=== PATIENT | male | born 1950 | race Caucasian/White ===

== ENCOUNTER → 2017-06-15 11:22 | Outpatient (CLI) | payer MEDICARE, OTHER, SELFPAY ==
--- NOTE | 2017-06-15 11:28 | RAD_ITS ---
STUDY: X-RAY - LEFT KNEE REASON FOR EXAM: Male, 67 years old. Left-sided knee pain without known injury. TECHNIQUE: 4 view(s) of the knee. COMPARISON: None. FINDINGS: There is demineralization of the visualized distal femur. There is demineralization of the tibia and fibula. There is a sclerotic lesion within the proximal medial tibia that may represent a bone island. There is arthrosis of the proximal tibiofibular articulation. There is no demonstrated fracture. There is moderate degenerative arthrosis of the medial femorotibial compartment with moderate joint space narrowing. There is mild degenerative arthrosis of the lateral femorotibial compartment. There is moderate degenerative arthrosis of the patellofemoral articulation. There is a soft tissue prominence in the suprapatellar region suggesting a small volume joint effusion. The soft tissue structures are unremarkable. RAD/Knee 4 or More Views IMPRESSION: Moderately severe degenerative arthropathy of the left knee. Electronically Signed: Nalini Faith MD at 8:24 EDT , Service support ,
== END ==
PROVIDERS: Family Provider Nurse Practitioner; PCP Nurse Practitioner; Visit Provider Nurse Practitioner
DX: M25.562 Pain in left knee (principal)
CPT/HCPCS: 73564

== ENCOUNTER 2017-12-25 07:28 | Observation (INO) | payer MEDICARE, OTHER, SELFPAY ==
[2017-12-05 09:58] VITALS: BP 156/80; PULSE 69; RESP 18; TEMP 36.9; O2SAT 96; BMI 38.7
[2017-12-05 10:38] LABS: Basophil# 0.11 X10^3/uL; Basophil% 1.4 % (0-1); Eosinophil# 0.14 X10^3/uL; Eosinophils% 1.8 % (0-5); Lymphocyte % 37.9 % (19-41); Mean Corp Hgb Conc 34.9 g/gl (32-36); Mean Corpuscular Hgb 29.4 pg (27.0-32.0); Mean Corpuscular Volume 84.3 fL (80-94); Mean Platelet Vol. 12.2 fl (6.2-12.0); Monocyte# 0.63 X10^3/uL; Neutrophil # 4.02 X10^3/uL (2.7-7.7); Neutrophil % 50.6 % (47-70); Platelet Count 177 K/mm3 (150-450); RBC Distribution Width CV 13.9 % (11.6-14.6); RBC Distribution Width SD 42.6 fl (35.1-43.9); White Blood Count 7.9 K/mm3 (4.4-11.0)
[2017-12-05 10:42] LABS: POSITIVE COUNT NO; POSITIVE DIFFERENTIAL NO; POSITIVE MORPHOLOGY NO
[2017-12-05 11:06] LABS: Anion Gap 12 (5-15); BUN 17 mg/dL (7-18); BUN/Creat Ratio 21.1 RATIO (10-20); Calcium,Total 8.8 mg/dL (8.5-10.1); Chloride 105 mmol/L (98-107); EST Glomerular Filtration Rate 102 mL/min (>60); Est Glom Filt Rate - Afr Amer 123 mL/min (>60); Estimated Creatinine Clearance 110.01 ml/min; Glucose 110 mg/dL (74-106); Potassium 3.8 mmol/L (3.5-5.1); Sodium Level 140 mmol/L (136-145)
--- NOTE | 2017-12-21 10:37 | CASEMGMT ---
Call placed to patient to discus discharge planning after upcoming surgery. Per PAT, plan is to return home, patient confirms that he thinks plan is to return home after surgery. Patient concerned that he's unable to install grab bars around toilet, his bed is pretty high off the ground which poses an issue getting in/out of bed. Patient reports that he's 6'6 and his bed comes up to his hip. Patient does have at home to assist with needs. Outpatient physical therapy is set up at [facility] and will assist with transportation. Patient reports steps are not an issue at home, has a high-rise toilet. Patient does not have a walker, states he prefers crutches as they are easier to get sized properly to accommodate height but feels as though a walker would encourage weight bearing on left leg. Patient also states that with a previous knee replacement he was unable to use recliner chair at home due to limited flexibility in LE. Notified patient that RN-CM would be made aware of concerns/needs and that RN-CM will likely follow up with patient after surgery. Barbi Montana LPN Clinical Support
[2017-12-25] VITALS (9 sets, daily range): BP systolic 117–165; BP diastolic 58–87; PULSE 71–84; RESP 16–18; TEMP 36.3–37.3; O2SAT 94–98; BMI 38.7
--- NOTE | 2017-12-25 | KNEE_PTH ---
PATIENT: MARK PETIT LOC: MS3 U#:[id number] AGE/SX: 67/M ROOM: [facility] [place] RE12/25/[address]: Dr. Eliecer Ford DO : 1950 BED: 1 DIS: 12/26/2017 SPEC #: [id number] RECD: 12/25/17 11:49 STATUS: RHONDA REMilad #: [id number] RAUL: 12/25/17 00:[address]: Eliecer Ford DEPT: SURGICAL PATHOLOGY RECD BY: Kevin Andrade ENTERED: 12/25/17 11:49 SP TYPE: TOTAL KNEE OTHR DR: Cherri Kahn, GOLF COURSE ASSISTANT-C Tissues: Knee, NOS Procedures: Decalcification bone/plaque Surgery Specimen Level IV HEADER OPERATION: Left total knee replacement PRE-OP DIAGNOSIS: Osteoarthritis left knee TISSUE SUBMITTED: Bone and soft tissue MICROSCOPIC DIAGNOSIS Bone and soft tissue, left knee, total knee replacement: Pieces of bone with degenerative osteoarthritic changes. Fibroadipose tissue, fibroconnective tissue and reactive synovial tissue. SJ:nelson 12/28/17 MICROSCOPIC DESCRIPTION Slides are reviewed. GROSS DESCRIPTION Received is one container designated bone and soft tissue left knee. The specimen consists of multiple fragments of kennedy-yellow bone measuring in aggregate 14 x 12 x 1.5 cm. Also in the specimen container are multiple fragments of yellow-white soft tissue measuring in aggregate 9 x 7 x 2 cm. A number of bony fragments contain articular surfaces consistent with tibial plateau and femoral condyle and displaying prominent osteophyte formation, eburnation, and bone erosion. Cutting Tool Sharpener sections are submitted in two cassettes as follows: 1 - soft tissue, 2 - bone after decalcification. / AM:nelson 12/25/17 TC:5 [facility]: [id number], [id number]
[2017-12-25] MEDS: oxyCODONE HCl Cr 10 MG Tablet PO (06:37)
[2017-12-25] MEDS: Celecoxib 200 MG Capsule 400 MG PO (06:37)
[2017-12-25] MEDS: Acetaminophen 500 MG Tablet 1000 MG PO ×3 (06:38→21:30)
[2017-12-25] MEDS: Lactated Ringers 1,000 ML 999 ML IV (06:50)
[2017-12-25] MEDS: Scopolamine 1mg/72hr Patch 1 PATCH TD (07:30)
--- NOTE | 2017-12-25 08:49 | PCM.IMDPSTOP ---
Immediate Post-Op Note Date of Procedure: 12/25/17 Primary Surgeon/Physician: Eliecer Fodr electric mule operator: Bernardino Iglesias Pre-Operative Diagnosis: OA left knee Post-Operative Diagnosis: same Surgery/Procedure Performed:: Left TKR Description of Surgical Findings:: see op note Estimated Blood Loss: 50cc Specimen's removed: bone Type of Anesthesia:: Spinal/Supplemental ASA Class: ASA2 Mod Systematic Disease - Admit VTE Documentation VTE Present on Admission: No VTE Mechan Device Prophylaxis: SCD's, Thigh High CHERYL Hose VTE Pharm Prophylaxis ordered?: Yes
--- NOTE | 2017-12-25 09:11 | OP.PN_ITS ---
Immediate Post-Op Note Date of Procedure: 12/25/17 Primary Surgeon/Physician: Eliecer Ford roll machine operator: Bernardino Iglesias Pre-Operative Diagnosis: OA left knee Post-Operative Diagnosis: same Surgery/Procedure Performed:: Left TKR Description of Surgical Findings:: see op note Estimated Blood Loss: 50cc Specimen's removed: bone Type of Anesthesia:: Spinal/Supplemental ASA Class: ASA2 Mod Systematic Disease - Admit VTE Documentation VTE Present on Admission: No VTE Mechan Device Prophylaxis: SCD's, Thigh High CHERYL Hose VTE Pharm Prophylaxis ordered?: Yes
--- NOTE | 2017-12-25 09:23 | PCM.OP.BLANK ---
Operative Report Date of Procedure: 12/25/17 Primary Surgeon/Physician: Eliecer Ford powerhouse electrician apprentice: Terrance Iglesias PA-C powerhouse electrician apprentice: Pre-Operative Diagnosis: OA Left knee Post-Operative Diagnosis: same Surgery/Procedure Performed: Left total knee arthroplasty Estimated Blood Loss: 25cc Specimen's Removed: bone Type of Anesthesia: spinal ASA Class: 2 Implants: [Estela Triathlon size 6 cemented CR femur, size 6 universal base plate, 9 mm CS tibial insert, 38 mm cemented patella ] Indications: Patient has severe end-stage osteoarthritis diagnosed via x-rays in the knee. They have failed all forms of conservative measures including activity modification, injections, anti-inflammatories, use of assistive device. The patient has pain that affects on a daily basis and prevents him from doing things that they enjoyed. They have elected to undergo the above procedure. The risks of the procedure were discussed at length and their questions were answered. Procedure Description: The patient was greeted in the preoperative area. The [left ] knee was then marked with a surgical marker. Patient was then taken to or Suite 1. They were administered a dose of antibiotics as well as tranexamic acid. Once adequate anesthesia was obtained and airway was secured to placed in supine position on the operating room table. A well-padded tourniquet was placed on the affected extremity. Leg was then prepped and draped in the usual sterile fashion from the knee down. Ioban was used on the skin. Surgical timeout was then performed and confirmed with all present. Six-inch Esmarch was used to examine the limb and tourniquet was then inflated to 250 mmHg. A longitudinal incision was then planned and carried out in the anterior aspect of the knee. The dissection was then carried the length of the incision the extensor mechanism was identified. Standard medial parapatellar arthrotomy was then performed revealing severe eburnation of bone and periarticular osteophytes. There is complete loss of cartilage especially in the medial compartment with varus alignment. Anterior fat pad was removed for visualization purposes and the anterior medial aspect of the tibia was skeletonized for exposure to the knee. The knee was then flexed the patella was inverted. Opening reamer was then used in the femur approximately 1 cm anterior to the attachment of the PCL. The intramedullary valgus wand was then placed in the femur set at 5? of valgus. The distal femoral cutting jig was then applied to the femur with anticipated resection of approximately 8 mm. This was then made with a oscillating saw. The sizing guide was then placed referencing off the posterior condyles and also reference off the epicondylar axis. This was measured and the appropriate size 4-in-1 cutting jig was then applied to the distal femur. Anterior posterior cuts were made followed by the anterior and posterior chamfer cuts. These bony pieces and fragments were removed and placed on the back table. Posterior retractor was then utilized and the tibia was subluxed anteriorly. Intramedullary tibial alignment jig was then applied to the tibia referencing off the medial one third of the tibial tubercle the anterior tibial spine the middle aspect of the tibiotalar joint. Also reference off patient's [place] slope. The tibial cutting jig was then pinned with anticipated resection of 2 mm off of the deficient medial tibial condyle. This cut was made with the oscillating saw. Once this was complete a laminar utility agent was utilized in both medial lateral meniscus were removed and a posterior capsular osteophytes were also removed. Posterior capsule release was performed in the posterior capsule as well as the geniculate arteries are treated with the aqua Navin. The tibia was incised and the appropriate sized tibial tray was then pinned. The femoral trial was then placed and the knee was trialed. Full flexion-extension were easily achieved. The knee seemed to balance quite nicely. Any remaining osteophytes were removed at this time. Once this was complete the patella was everted and the Nirmala patella reaming device was then utilized the patella was then placed in the appropriate jig and reamer was then used to remove approximately 9 mm of the undersurface of the patella. A soft tissue remaining was in the way was removed and patella trial was then placed listed maintain excellent tracking using the no thumbs technique. The tibial tray at this point was punched to accommodate the fins of the final implant. At this point cement was mixed on the back table. The trial components were removed and the knee was copiously irrigated. Did use a cocktail of injection for postoperative pain control. The final components were then cemented in the standard fashion and excess cement was removed with cement removal tools and patellar clamp is placed in the patella. As the cement had cured in full extension tourniquet was deflated and hemostasis was perfect with Bovie cautery as well as the aqua Manus. The knee is once again trialed with different size polyethylenes to ensure the full range of motion was achieved as well as excellent balancing ligamentously was achieved. At this point the knee was copiously irrigated. Final implant was then inserted locking mechanism was engaged and confirmed to be locked. The arthrotomy was then closed with #1 Vicryl aggravate type fashion interrupted. Subcutaneous tissue was closed with 0 Vicryl and surgical garima were placed in the skin. A occlusive silver impregnated dressing was then applied followed by well-padded sterile dressing secured with an Oz wrap. The patient was taken to the PACU in stable condition. No complications known at this time. Postoperatively we will maintain standard total knee postoperative protocol. The use of the physician civil engineering assistant was integral during this procedure. They assisted with positioning placement of the tourniquet retracting closure and placement of the dressing. The procedure would have been much more difficult without their expertise and assistance
--- NOTE | 2017-12-25 09:29 | OP.PCM_ITS ---
Operative Report Date of Procedure: 12/25/17 Primary Surgeon/Physician: Eliecer Ford meat service team member: Terrance Iglesias PA-C meat service team member: Pre-Operative Diagnosis: OA Left knee Post-Operative Diagnosis: same Surgery/Procedure Performed: Left total knee arthroplasty Estimated Blood Loss: 25cc Specimen's Removed: bone Type of Anesthesia: spinal ASA Class: 2 Implants: [Estela Triathlon size 6 cemented CR femur, size 6 universal base plate, 9 mm CS tibial insert, 38 mm cemented patella ] Indications: Patient has severe end-stage osteoarthritis diagnosed via x-rays in the knee. They have failed all forms of conservative measures including activity modification, injections, anti-inflammatories, use of assistive device. The patient has pain that affects on a daily basis and prevents him from doing things that they enjoyed. They have elected to undergo the above procedure. The risks of the procedure were discussed at length and their questions were answered. Procedure Description: The patient was greeted in the preoperative area. The [ left ] knee was then marked with a surgical marker. Patient was then taken to or Suite 1. They were administered a dose of antibiotics as well as tranexamic acid. Once adequate anesthesia was obtained and airway was secured to placed in supine position on the operating room table. A well-padded tourniquet was placed on the affected extremity. Leg was then prepped and draped in the usual sterile fashion from the knee down. Ioban was used on the skin. Surgical timeout was then performed and confirmed with all present. Six-inch Esmarch was used to examine the limb and tourniquet was then inflated to 250 mmHg. A longitudinal incision was then planned and carried out in the anterior aspect of the knee. The dissection was then carried the length of the incision the extensor mechanism was identified. Standard medial parapatellar arthrotomy was then performed revealing severe eburnation of bone and periarticular osteophytes. There is complete loss of cartilage especially in the medial compartment with varus alignment. Anterior fat pad was removed for visualization purposes and the anterior medial aspect of the tibia was skeletonized for exposure to the knee. The knee was then flexed the patella was inverted. Opening reamer was then used in the femur approximately 1 cm anterior to the attachment of the PCL. The intramedullary valgus wand was then placed in the femur set at 5? of valgus. The distal femoral cutting jig was then applied to the femur with anticipated resection of approximately 8 mm. This was then made with a oscillating saw. The sizing guide was then placed referencing off the posterior condyles and also reference off the epicondylar axis. This was measured and the appropriate size 4-in-1 cutting jig was then applied to the distal femur. Anterior posterior cuts were made followed by the anterior and posterior chamfer cuts. These bony pieces and fragments were removed and placed on the back table. Posterior retractor was then utilized and the tibia was subluxed anteriorly. Intramedullary tibial alignment jig was then applied to the tibia referencing off the medial one third of the tibial tubercle the anterior tibial spine the middle aspect of the tibiotalar joint. Also reference off patient's [place] slope. The tibial cutting jig was then pinned with anticipated resection of 2 mm off of the deficient medial tibial condyle. This cut was made with the oscillating saw. Once this was complete a laminar spreader operator automatic was utilized in both medial lateral meniscus were removed and a posterior capsular osteophytes were also removed. Posterior capsule release was performed in the posterior capsule as well as the geniculate arteries are treated with the aqua Navin. The tibia was incised and the appropriate sized tibial tray was then pinned. The femoral trial was then placed and the knee was trialed. Full flexion-extension were easily achieved. The knee seemed to balance quite nicely. Any remaining osteophytes were removed at this time. Once this was complete the patella was everted and the Nirmala patella reaming device was then utilized the patella was then placed in the appropriate jig and reamer was then used to remove approximately 9 mm of the undersurface of the patella. A soft tissue remaining was in the way was removed and patella trial was then placed listed maintain excellent tracking using the no thumbs technique. The tibial tray at this point was punched to accommodate the fins of the final implant. At this point cement was mixed on the back table. The trial components were removed and the knee was copiously irrigated. Did use a cocktail of injection for postoperative pain control. The final components were then cemented in the standard fashion and excess cement was removed with cement removal tools and patellar clamp is placed in the patella. As the cement had cured in full extension tourniquet was deflated and hemostasis was perfect with Bovie cautery as well as the aqua Manus. The knee is once again trialed with different size polyethylenes to ensure the full range of motion was achieved as well as excellent balancing ligamentously was achieved. At this point the knee was copiously irrigated. Final implant was then inserted locking mechanism was engaged and confirmed to be locked. The arthrotomy was then closed with #1 Vicryl aggravate type fashion interrupted. Subcutaneous tissue was closed with 0 Vicryl and surgical garima were placed in the skin. A occlusive silver impregnated dressing was then applied followed by well-padded sterile dressing secured with an Oz wrap. The patient was taken to the PACU in stable condition. No complications known at this time. Postoperatively we will maintain standard total knee postoperative protocol. The use of the physician title assistant was integral during this procedure. They assisted with positioning placement of the tourniquet retracting closure and placement of the dressing. The procedure would have been much more difficult without their expertise and assistance
[2017-12-25 09:40] LABS: Hematocrit 40.2 % (40-54); Hemoglobin 13.8 g/dl (13.0-16.5); Mean Corp Hgb Conc 34.3 g/gl (32-36); Mean Corpuscular Hgb 29.2 pg (27.0-32.0); Mean Corpuscular Volume 85.2 fL (80-94); Mean Platelet Vol. 11.7 fl (6.2-12.0); Platelet Count 188 K/mm3 (150-450); RBC Distribution Width SD 43.2 fl (35.1-43.9); Red Blood Count 4.72 M/mm3 (4.6-6.2); White Blood Count 9.1 K/mm3 (4.4-11.0)
[2017-12-25 09:41] LABS: Scan Indicated on CBC? Y/N NO
[2017-12-25 09:54] LABS: Anion Gap 7 (5-15); BUN 18 mg/dL (7-18); BUN/Creat Ratio 22.5 RATIO (10-20); Calcium,Total 8.3 mg/dL (8.5-10.1); Chloride 107 mmol/L (98-107); EST Glomerular Filtration Rate 102 mL/min (>60); Est Glom Filt Rate - Afr Amer 124 mL/min (>60); Estimated Creatinine Clearance 110.01 ml/min; Glucose 133 mg/dL (74-106); Potassium 3.8 mmol/L (3.5-5.1); Sodium Level 139 mmol/L (136-145)
[2017-12-25] MEDS: Ketorolac 15 MG/ML Vial IV ×2 (10:55→18:05)
[2017-12-25] MEDS: traMADol 50 MG Tablet PO (12:39)
[2017-12-25] MEDS: Senna/Docusate Sodium 1 Tablet 2 TABLET PO ×2 (12:41→21:30)
[2017-12-25] MEDS: Aspirin 325 MG Tablet PO ×2 (12:41→21:30)
[2017-12-25] MEDS: Lactated Ringers 1,000 ML 125 ML IV (14:43)
[2017-12-26] MEDS: traMADol 50 MG Tablet PO ×2 (01:23→09:50)
[2017-12-26 01:42] VITALS: BP 161/80; PULSE 71; RESP 16; TEMP 37.3; O2SAT 96
[2017-12-26] MEDS: Acetaminophen 500 MG Tablet 1000 MG PO ×2 (06:27→13:31)
[2017-12-26 06:37] LABS: Hematocrit 38.1 % (40-54); Mean Corp Hgb Conc 34.1 g/gl (32-36); Mean Corpuscular Hgb 29.3 pg (27.0-32.0); Mean Platelet Vol. 12.2 fl (6.2-12.0); Platelet Count 145 K/mm3 (150-450); RBC Distribution Width SD 43.1 fl (35.1-43.9); Red Blood Count 4.43 M/mm3 (4.6-6.2); White Blood Count 8.9 K/mm3 (4.4-11.0)
[2017-12-26 06:41] LABS: Scan Indicated on CBC? Y/N NO
[2017-12-26 06:44] LABS: Anion Gap 9 (5-15); BUN 17 mg/dL (7-18); BUN/Creat Ratio 21.2 RATIO (10-20); Calcium,Total 8.3 mg/dL (8.5-10.1); Chloride 106 mmol/L (98-107); EST Glomerular Filtration Rate 102 mL/min (>60); Est Glom Filt Rate - Afr Amer 123 mL/min (>60); Estimated Creatinine Clearance 110.01 ml/min; Glucose 128 mg/dL (74-106); Potassium 4.1 mmol/L (3.5-5.1); Sodium Level 140 mmol/L (136-145)
--- NOTE | 2017-12-26 07:45 | PN.ORTHO_ITS ---
Subjective: Patient sitting at bedside. Patient states pain is well-managed. Denies chest pain, shortness breath, calf pain, nausea vomiting. Patient has no other complaints states he is ready for discharge home. He prefers not to have any strong narcotic pain medication he feels his pain is being well managed with use of Tylenol. Objective: Dressings clean dry intact. Negative signs and symptoms of DVT. Vital signs labs all within normal limits. Patient is afebrile neurovascular is otherwise intact. - Physical Exam General: Alert, Oriented x3, Cooperative HEENT: PERRLA Oral: Moist Mucosa Neurological: Cranial nerves II-XII grossly intact Psych/Mental Status: Normal Affect, Alert and oriented to time, place, person, mood and affect Vital Signs Temp Pulse Resp BP Pulse Ox 99.1 F 71 16 161/80 H 96 12/26/17 01:42 12/26/17 01:42 12/26/17 01:42 12/26/17 01:42 12/26/17 01:42 Oxygen Delivery Method Room Air Weight: 144.1 kg Body Mass Index (BMI) 38.7 Intake and Output for Last 24 Hours 12/24/17 12/25/17 12/26/17 23:59 23:59 23:59 Intake Total 3090 / 3090 1567 / 1567 Balance 3090 / 3090 1567 / 1567 Laboratory Tests Past 24 Hrs 12/25/17 12/25/17 12/26/17 09:34 09:34 05:38 WBC 9.1 8.9 RBC 4.72 4.43 L Hgb 13.8 13.0 Hct 40.2 38.1 L MCV 85.2 86.0 MCH 29.2 29.3 MCHC 34.3 34.1 RDW 14.0 14.0 RDW Differential 43.2 43.1 Plt Count 188 145 L MPV 11.7 12.2 H Sodium 139 Potassium 3.8 Chloride 107 Carbon Dioxide 25.0 Anion Gap 7 BUN 18 Creatinine 0.80 Estim Creat Clear Calc 110.01 Est GFR (MDRD) Af Amer 124 Est GFR (MDRD) Non-Af 102 BUN/Creatinine Ratio 22.5 H Glucose 133 H Calcium 8.3 L 12/26/17 05:38 WBC RBC Hgb Hct MCV MCH MCHC RDW RDW Differential Plt Count MPV Sodium 140 Potassium 4.1 Chloride 106 Carbon Dioxide 25.0 Anion Gap 9 BUN 17 Creatinine 0.80 Estim Creat Clear Calc 110.01 Est GFR (MDRD) Af Amer 123 Est GFR (MDRD) Non-Af 102 BUN/Creatinine Ratio 21.2 H Glucose 128 H Calcium 8.3 L Medical Necessity - Tobacco Use Smoking Status: Never smoker Assessment/Plan All Active Problems Influenza (Acute) Weakness generalized (Acute) Fever and chills (Acute) Status post left total knee Plan 1. Continue all pain medications as prescribed. Patient is requested Tylenol and Ultram only for his pain 2. Physical therapy today 3. Aspirin 325 mg 1 p.o. every 12 hours times 30 days for postop DVT prophylaxis 4. Follow-up as scheduled 5. Discharge home today after p.m. physical therapy session. 6. Patient will begin outpatient physical therapy on Monday at [facility]
--- NOTE | 2017-12-26 07:50 | DCINST_ITS ---
Discharge Diet: No Restrictions Discharge Activity: May Not Drive, May Shower, Use Walker May shower in (days): 4 Ice area for (Minutes): 20 - each hour while awake. Weight Bearing Status: Weight bearing as tolerated Elevate: Operative Extremity Additional Activity Instructions:: Wear elastic stockings for 2 weeks after your surgery. Call your doctor if your incision/area has: Continuous Slow Oozing, Sudden Increased Bleeding, Increased Pain/ Swelling, Increased Redness, Foul Smelling Discharge Call your doctor if you observe: Fever of 101 or Higher, Coldness, Increased Pain - in extremity, Numbness or Tingling, Change in Color, Calf discomfort, Uncontrolled pain Change Dressing in (Days):: 0 - and daily as needed. Remove Dressing in (days):: 8 Cleanse incision/area with: Soap & Water Allergies/Adverse Reactions: Allergies No Known Allergies Allergy (Verified 12/05/17 09:50) Medications to take at Discharge Acetaminophen [Tylenol] 1,000 mg PO Q8 #90 tab 12/26/17 Aspirin 325 mg PO BID #60 tab 12/26/17 traMADol [Ultram] 50 - 100 mg PO Q6H PRN PRN #90 tab 12/26/17 The following prescriptions were given: traMADol [Ultram] 50 - 100 mg PO Q6H PRN PRN #90 tab PRN Reason: Mod-Severe Pain (4-1010) Acetaminophen [Tylenol] 1,000 mg PO Q8 #90 tab Aspirin 325 mg PO BID #60 tab Primary Care Physician: Cherri Kahn [Primary Care Provider] - Test Results: Test results from this visit will be discussed in further detail at your follow- up appointment, if applicable. Please Follow Up With: Bernardino Iglesias PA-C When: as scheduled (see pink sheet)
[2017-12-26 09:00] VITALS: BP 126/66; PULSE 70; RESP 18; TEMP 37; O2SAT 97
--- NOTE | 2017-12-26 09:30 | PCA ---
pt in therapy
[2017-12-26] MEDS: Aspirin 325 MG Tablet PO (09:50)
[2017-12-26] MEDS: Senna/Docusate Sodium 1 Tablet 2 TABLET PO (09:50)
--- NOTE | 2017-12-26 10:00 | CASEMGMT ---
[facility] Face to Face with patient for initial transition planning/care coordination assessment. RN SARAI introduced self and role at [facility]. Patient lying in bed, alert and oriented, at bedside. Patient willing to participate in assessment and is able to answer all questions appropriately. Care providers, pharmacy, and demographics verified. Patient wishes to discharge home and is setup with [facility] for outpatient therapy. Patient states that he will need a walker and 3 in1 BSC. Scripts obtained and faxed to [facility]. Patient states he has no further needs or concerns at this time. CM to follow for discharge planning needs that may arise. Disposition Plan: Patient to discharge home with outpatient therapy, family support, and follow-up plans in place. Elizabeth VAUGHN, RN, CM
[2017-12-26 12:47] VITALS: BP 153/68; PULSE 73; RESP 18; TEMP 37.1; O2SAT 94
[2017-12-26 14:10] VITALS: BP 153/68; PULSE 73; RESP 18; TEMP 37.1; O2SAT 94
== END 2017-12-26 14:11 | disposition home or self-care (01) ==
PROVIDERS: Admitting Provider Orthopaedic Surgery; Family Provider Nurse Practitioner; PCP Nurse Practitioner; Visit Provider Orthopaedic Surgery
PROC: (CPT 27447; principal; 2017-12-25 06:50)
DX: M17.12 Unilateral primary osteoarthritis, left knee (principal); Z79.82 Long term (current) use of aspirin; Z23 Encounter for immunization; E66.9 Obesity, unspecified; Z68.39 Body mass index [BMI] 39.0-39.9, adult; Z71.3 Dietary counseling and surveillance
CPT/HCPCS: 27447; 64447; 36415; 80048; 85025; 85027; 87077; 87081; 88305; 88311; 93005; 96361; 96374; 96376; 97110; 97116; 97162; 97166; 97530; 97802; 99218; C1776; G0008; J7120; 90686; G0378; G0379; J2405

== ENCOUNTER → 2019-03-08 08:25 | Outpatient (CLI) | payer MEDICARE, OTHER, SELFPAY ==
[2017-12-25 10:28] VITALS: BMI 38.7
--- NOTE | 2019-03-08 09:15 | RAD_ITS ---
STUDY: X-RAY CHEST REASON FOR EXAM: Male, 68 years old. One-week history of cough and chest congestion. TECHNIQUE: PA and lateral views of the chest. COMPARISON: Comparison is made with prior study dated July 01, 2016. FINDINGS: The lungs are clear and expanded. Scattered calcified granulomas. There is no demonstrated pleural abnormality. There is mild cardiac enlargement. Normal mediastinum and gracie. Normal visualized pulmonary arteries. There is atherosclerotic tortuosity of the aortic arch and descending thoracic aorta. There are diffuse degenerative changes of the visualized thoracic spine. Normal visualized ribs, clavicles, and shoulders. There is no demonstrated abnormality of the visualized soft tissue structures of the upper abdomen. RAD/Chest PA and Lateral IMPRESSION: No acute abnormality is seen. Electronically Signed: Alok Conroy, at 10:24 EST , Service support ,
== END ==
PROVIDERS: Family Provider Nurse Practitioner; PCP Nurse Practitioner; Referring Provider Internal Medicine; Visit Provider Internal Medicine
DX: R05 Cough (principal)
CPT/HCPCS: 71046